=== PATIENT | female | born 1945 | race Native Hawaiian/Other Pacific Islander ===

== ENCOUNTER → 2019-03-18 08:13 | Outpatient (CLI) | payer OTHER | END | disposition home or self-care (01) | LOC: AMB 08:13 | DX: Z04.1 Encounter for examination and observation following transport accident (principal) ==

== ENCOUNTER 2021-05-29 08:49 | Outpatient (CLI) | payer OTHER, BC ==
[2021-05-29 09:36] LABS: PLATELET COUNT 182 K/uL (152-353)
== END 2021-05-29 18:51 | disposition home or self-care (01) ==
LOC: LABW 08:49
PROVIDERS: ATTEND Internal Medicine Medical Oncology
DX: C90.00 Multiple myeloma not having achieved remission (principal); E55.9 Vitamin D deficiency, unspecified; E87.5 Hyperkalemia; R29.6 Repeated falls; M79.622 Pain in left upper arm
CPT/HCPCS: 36415; 80053; 83883; 84165; 85027; 86334

== ENCOUNTER 2021-06-05 08:57 | Outpatient (CLI) | payer OTHER, BC ==
[2021-06-05 09:09] LABS: PLATELET COUNT 172 K/uL (152-353)
== END 2021-06-05 18:55 | disposition home or self-care (01) ==
LOC: LABW 08:57
PROVIDERS: ATTEND Internal Medicine Medical Oncology
DX: C90.00 Multiple myeloma not having achieved remission (principal); E55.9 Vitamin D deficiency, unspecified; E87.5 Hyperkalemia; R29.6 Repeated falls; M79.622 Pain in left upper arm
CPT/HCPCS: 36415; 80053; 85027

== ENCOUNTER 2021-06-19 08:25 | Outpatient (CLI) | payer OTHER, BC ==
[2021-06-19 08:38] LABS: PLATELET COUNT 170 K/uL (152-353)
[2021-06-19 11:20] LABS: POTASSIUM 4.3 mmol/L (3.6-5.2)
== END 2021-06-19 19:32 | disposition home or self-care (01) ==
LOC: LABW 08:25
PROVIDERS: ATTEND Internal Medicine Medical Oncology
DX: C90.00 Multiple myeloma not having achieved remission (principal); E55.9 Vitamin D deficiency, unspecified; E87.5 Hyperkalemia; R29.6 Repeated falls; M79.622 Pain in left upper arm
CPT/HCPCS: 36415; 80053; 85027

== ENCOUNTER 2021-06-26 08:56 | Outpatient (CLI) | payer OTHER, BC ==
[2021-06-26 09:08] LABS: PLATELET COUNT 157 K/uL (152-353)
[2021-06-26 09:26] LABS: POTASSIUM 3.7 mmol/L (3.6-5.2)
== END 2021-06-26 18:54 | disposition home or self-care (01) ==
LOC: LABW 08:56
PROVIDERS: ATTEND Internal Medicine Medical Oncology
DX: C90.00 Multiple myeloma not having achieved remission (principal); E55.9 Vitamin D deficiency, unspecified; E87.5 Hyperkalemia; R29.6 Repeated falls; M79.622 Pain in left upper arm
CPT/HCPCS: 36415; 80053; 82306; 85027

== ENCOUNTER 2021-07-03 09:02 | Outpatient (CLI) | payer OTHER, BC ==
[2021-07-03 09:23] LABS: PLATELET COUNT 201 K/uL (152-353)
[2021-07-03 09:31] LABS: POTASSIUM 5.4 mmol/L (3.6-5.2)
== END 2021-07-03 18:57 | disposition home or self-care (01) ==
LOC: LABW 09:02
PROVIDERS: ATTEND Internal Medicine Medical Oncology
DX: C90.00 Multiple myeloma not having achieved remission (principal); E55.9 Vitamin D deficiency, unspecified; E87.5 Hyperkalemia; R29.6 Repeated falls; M79.622 Pain in left upper arm
CPT/HCPCS: 36415; 80053; 85027

== ENCOUNTER 2021-07-10 09:02 | Outpatient (CLI) | payer OTHER, BC ==
[2021-07-10 09:14] LABS: PLATELET COUNT 243 K/uL (152-353)
[2021-07-10 09:23] LABS: POTASSIUM 4.2 mmol/L (3.6-5.2)
== END 2021-07-10 19:10 | disposition home or self-care (01) ==
LOC: LABW 09:02
PROVIDERS: ATTEND Internal Medicine Medical Oncology
DX: C90.00 Multiple myeloma not having achieved remission (principal); E55.9 Vitamin D deficiency, unspecified; E87.5 Hyperkalemia; R29.6 Repeated falls; M79.622 Pain in left upper arm
CPT/HCPCS: 36415; 80053; 85027

== ENCOUNTER 2021-07-17 08:51 | Outpatient (CLI) | payer OTHER, BC ==
[2021-07-17 09:06] LABS: PLATELET COUNT 132 K/uL (152-353)
[2021-07-17 09:17] LABS: POTASSIUM 3.8 mmol/L (3.6-5.2)
== END 2021-07-17 19:23 | disposition home or self-care (01) ==
LOC: LABW 08:51
PROVIDERS: ATTEND Internal Medicine Medical Oncology
DX: C90.00 Multiple myeloma not having achieved remission (principal); E55.9 Vitamin D deficiency, unspecified; E87.5 Hyperkalemia; R29.6 Repeated falls; M79.622 Pain in left upper arm
CPT/HCPCS: 36415; 80053; 85027

== ENCOUNTER 2021-07-24 09:01 | Outpatient (CLI) | payer OTHER, BC ==
[2021-07-24 09:27] LABS: PLATELET COUNT 151 K/uL (152-353)
[2021-07-24 15:04] LABS: POTASSIUM 4.3 mmol/L (3.6-5.2)
== END 2021-07-24 19:37 | disposition home or self-care (01) ==
LOC: LABW 09:01
PROVIDERS: ATTEND Internal Medicine Medical Oncology
DX: C90.00 Multiple myeloma not having achieved remission (principal); E55.9 Vitamin D deficiency, unspecified; E87.5 Hyperkalemia; R29.6 Repeated falls; M79.622 Pain in left upper arm
CPT/HCPCS: 36415; 80053; 85027

== ENCOUNTER 2021-08-07 09:07 | Outpatient (CLI) | payer OTHER, BC ==
[2021-08-07 09:21] LABS: PLATELET COUNT 266 K/uL (152-353)
[2021-08-07 09:38] LABS: POTASSIUM 3.9 mmol/L (3.6-5.2)
== END 2021-08-07 18:51 | disposition home or self-care (01) ==
LOC: LABW 09:07
PROVIDERS: ATTEND Internal Medicine Medical Oncology
DX: C90.00 Multiple myeloma not having achieved remission (principal); E55.9 Vitamin D deficiency, unspecified; E87.5 Hyperkalemia; R29.6 Repeated falls; M79.622 Pain in left upper arm
CPT/HCPCS: 36415; 80053; 85027

== ENCOUNTER 2021-08-14 09:06 | Outpatient (CLI) | payer OTHER, BC ==
[2021-08-14 09:32] LABS: PLATELET COUNT 191 K/uL (152-353)
[2021-08-14 11:03] LABS: POTASSIUM 4.4 mmol/L (3.6-5.2)
== END 2021-08-14 18:57 | disposition home or self-care (01) ==
LOC: RAD 09:06
PROVIDERS: ATTEND Nurse Practitioner Family
DX: C90.00 Multiple myeloma not having achieved remission (principal); E55.9 Vitamin D deficiency, unspecified; E87.5 Hyperkalemia; R29.6 Repeated falls; M79.622 Pain in left upper arm
CPT/HCPCS: 36415; 80053; 85027

== ENCOUNTER 2021-08-21 10:50 | Outpatient (CLI) | payer OTHER, BC ==
[2021-08-21 11:25] LABS: PLATELET COUNT 147 K/uL (152-353)
[2021-08-21 11:39] LABS: POTASSIUM 3.3 mmol/L (3.6-5.2)
== END 2021-08-21 19:11 | disposition home or self-care (01) ==
LOC: LABW 10:50
PROVIDERS: ATTEND Internal Medicine Medical Oncology
DX: C90.00 Multiple myeloma not having achieved remission (principal); E55.9 Vitamin D deficiency, unspecified; E87.5 Hyperkalemia; R29.6 Repeated falls; M79.622 Pain in left upper arm
CPT/HCPCS: 36415; 80053; 82784; 83883; 84165; 85027; 86334